=== PATIENT | male | born 1985 | race Caucasian/White ===

== ENCOUNTER 2018-06-15 00:29 | Emergency (ER) | payer SELFPAY ==
[~2018-06-15] VITALS: Ht 162.6 cm; Wt 81.6 kg
[2018-06-15 00:37] VITALS: Ht 162.6 cm; Wt 81.6 kg
[2018-06-15 02:27] VITALS: BP 134/88
== END 2018-06-15 02:27 | disposition home or self-care (01) ==
LOC: ED 00:29
DX: L30.9 Dermatitis, unspecified (principal)
CPT/HCPCS: J7512

== ENCOUNTER 2019-06-09 17:12 | Emergency (ER) | payer OTHER ==
[~2019-06-09] VITALS: Ht 165.1 cm; Wt 90.7 kg
[2019-06-09 17:25] VITALS: Ht 165.1 cm; Wt 90.7 kg
[2019-06-09 19:26] VITALS: BP 123/76
== END 2019-06-09 19:26 | disposition home or self-care (01) ==
LOC: ED 17:12
DX: H10.89 Other conjunctivitis (principal)